=== PATIENT | male | born 2000 | race Hispanic/Latino ===

== ENCOUNTER 2022-11-07 23:01 | Emergency (ER) | payer OTHER ==
[2022-11-08] MEDS ORDERED: predniSONE 20 MG TAB ONE (00:15)
[2022-11-08] MEDS ORDERED: Ipratropium/Albuterol 3 ML NEB ONE (00:19)
[2022-11-08] MEDS ORDERED: Azithromycin 250 MG TAB ONE (01:43)
== END 2022-11-08 01:45 | disposition home or self-care (01) ==
LOC: CSHERS 23:01
DX: J18.9 Pneumonia, unspecified organism (principal)
CPT/HCPCS: 71046; 94640; 94760; J7512; J7620